=== PATIENT | female | born 1960 | race Caucasian/White ===

== ENCOUNTER → 2017-01-29 | Outpatient (CLI) | payer OTHER ==
[~2017-01-29] MED LIST: ADVIL200 MG PO; ASCORBIC ACID500 MG PO; CELEXA20 MG PO; CRESTOR10 MG PO; FISH OIL1000 MG PO; HYDRODIURIL25 MG PO; ZYRTEC10 MG PO
== END | disposition disaster alternative care site (69) ==
LOC: GBCOE 11:25
DX: Z12.31 Encounter for screening mammogram for malignant neoplasm of breast (principal)
CPT/HCPCS: G0202